=== PATIENT | male | born 1955 | race Caucasian/White ===

== ENCOUNTER → 2018-02-01 | Outpatient (CLI) | payer MEDICARE | END | disposition home or self-care (01) | LOC: RAD 12:35 | DX: M47.897 Other spondylosis, lumbosacral region (principal); M53.3 Sacrococcygeal disorders, not elsewhere classified; R53.1 Weakness; M25.551 Pain in right hip; M25.552 Pain in left hip ==

== ENCOUNTER 2018-05-09 05:22 | Emergency (ER) | payer MEDICARE ==
[~2018-05-09] VITALS: Ht 182.8 cm; Wt 136.1 kg
== END 2018-05-09 08:40 | disposition expired ==
LOC: ED 05:22
DX: I46.9 Cardiac arrest, cause unspecified (principal); Z99.2 Dependence on renal dialysis